=== PATIENT | female | born 1955 | race Caucasian/White ===

== ENCOUNTER 2018-03-19 03:02 | Emergency (ER) | payer BC ==
[2018-03-19] MEDS ORDERED: ALBUTEROL SULFATE 0.083% NEB 2.5 MG/3 ML AMPUL NEB ONE ×2 (03:09→04:38)
[2018-03-19] MEDS: MAGNESIUM SULFATE/D5W 1 GM/100 ML RTUPB IV SCH ×2 (03:20→03:56)
[2018-03-19 04:14] LABS: ABSOLUTE BASOPHILS # (AUTO) 0.1 10^3/uL (0.0-0.2); ABSOLUTE EOSINOPHILS # (AUTO) 0.1 10^3/uL (0.0-0.6); ABSOLUTE LYMPHOCYTES (AUTO) 3.2 10^3/uL (0.5-4.7); ABSOLUTE MONOCYTES (AUTO) 0.9 10^3/uL (0.1-1.4); ABSOLUTE NEUT (AUTO) 14.5 10^3/uL (1.7-8.2); BASOPHILS % (AUTO) 0.4 % (0-2); EOSINOPHILS % (AUTO) 0.3 % (0-6); HEMATOCRIT 40.7 % (36.0-47.0); HEMOGLOBIN 13.4 g/dL (12.0-15.5); LYMPHOCYTES % (AUTO) 16.9 % (13-45); MEAN CORPUSCULAR HEMOGLOBIN 31.3 pg (27.0-33.4); MEAN CORPUSCULAR HGB CONC 32.9 g/dL (32.0-36.0); MEAN CORPUSCULAR VOLUME 95 fl (80-97); MONOCYTES % (AUTO) 4.9 % (3-13); PLATELET COUNT 329 10^3/uL (150-450); RED BLOOD COUNT 4.28 10^6/uL (3.72-5.28); RED CELL DISTRIBUTION WIDTH 14.5 % (11.5-14.0); SEGMENTED NEUTROPHILS % (AUTO) 77.5 % (42-78); TOTAL CELLS COUNTED % (AUTO) 100 %; WHITE BLOOD COUNT 18.8 10^3/uL (4.0-10.5)
[2018-03-19 04:43] LABS: ALANINE AMINOTRANSFERASE 40 U/L (9-52); ALBUMIN 3.4 g/dL (3.5-5.0); ALKALINE PHOSPHATASE 103 U/L (38-126); ANION GAP 11 (5-19); ASPARTATE AMINO TRANSFERASE 23 U/L (14-36); BILIRUBIN,DIRECT 0.3 mg/dL (0.0-0.4); BILIRUBIN,TOTAL 0.3 mg/dL (0.2-1.3); BLOOD UREA NITROGEN 22 mg/dL (7-20); CALCIUM 8.3 mg/dL (8.4-10.2); CARBON DIOXIDE 25 mmol/L (22-30); CHLORIDE 86 mmol/L (98-107); SODIUM 122.3 mmol/L (137-145); TOTAL PROTEIN 5.7 g/dL (6.3-8.2)
--- NOTE | 2018-03-19 05:04 | RADIOLOGY REPORT (SQ) ---
Chest single view on 03/19/2018 at 5:12 AM CLINICAL INDICATION: Shortness of breath COMPARISON: None FINDINGS: The lungs are clear. Mild vascular calcification is noted in the aorta. Cardiac, hilar and mediastinal contours are within normal limits. Pulmonary vascularity is within normal limits. No bony abnormality is noted. IMPRESSION: No active disease.
[2018-03-19 05:06] LABS: GLUCOSE 674 mg/dL (75-110); POTASSIUM 2.7 mmol/L (3.6-5.0)
--- NOTE | 2018-03-19 05:45 | ER Document Report ---
Doctor's Note Notes: 03/19/18 05:42 I personally and independently obtained patient history and examined the patient and have reviewed the APC's note, reviewed, discussed and agree with their assessment and plan. HISTORY OF PRESENT ILLNESS: Patient is a 62-year-old female that presents to the emergency department for chief complaint of lip swelling, rash, after being bit by fire ants. Patient was stepping out of her car, and try to help get fire ants off of her , and was bitten the hands and feet, and then had a severe allergic reaction, she received IM epinephrine 2 by EMS. ROS: Constitutional: Negative for fever. Cardiovascular: Negative for chest pain. Respiratory: Negative for shortness of breath. Gastrointestinal: Negative for vomiting or abdominal pain Musculoskeletal: Negative for arm, leg or back pain Skin: Positive for rash and lip swelling Neurological: Negative for weakness or numbness. Unless otherwise stated in this report the patient's positive and negative responses for review of systems for constitutional, eyes, ENT, cardiovascular, respiratory, gastrointestinal, neurological, genitourinary, musculoskeletal, and integumentary systems and related systems to the presenting problem are either as stated in the HPI or were not pertinent or were negative for the symptoms and/or complaints related to the presenting medical problem. PHYSICAL EXAMINATION: Vital signs reviewed, nursing noted reviewed. GENERAL: Well-appearing, well-nourished and in no acute distress. HEAD: Atraumatic, normocephalic. EYES: Eyes appear normal, conjunctiva are normal. ENT: nares patent, oropharynx clear without exudates. Moist mucous membranes. No angioedema on my exam, uvula midline, no uvular edema NECK: Normal range of motion, supple without lymphadenopathy LUNGS: Breath sounds clear to auscultation bilaterally and equal. No wheezes rales or rhonchi. HEART: Regular rate and rhythm without murmurs ABDOMEN: Soft, nontender, normoactive bowel sounds. No rebound, guarding, or rigidity. No masses appreciated. EXTREMITIES: Nontender, good range of motion, no pitting or edema. NEUROLOGICAL: No focal neurological deficits. Moves all extremities spontaneously Motor and sensory grossly intact on exam. PSYCH: Normal mood, normal affect. SKIN: Warm, Dry, normal turgor, areas of erythema on the hands and feet, improved per patient, after receiving treatment MEDICAL DECISION MAKING: Patient was treated with IM epinephrine 2 by EMS, given albuterol inhalers, on my examination the patient was much improved, was consulted regarding the patient's blood work, which demonstrated significant hyperglycemia, pseudohyponatremia, and hypokalemia, hyperglycemia I feel is likely a reactant from 2 doses of IM epinephrine, repeated finger glucose testing and it was in the 200s, as opposed to 600 on her blood work, the hypokalemia is probably from continuous albuterol treatment, however we will repeat all of these labs, to verify them, if resolved or improved and stable, patient can be discharged, to follow-up she is from [place], her primary care is out of town. CRITICAL CARE TIME: Critical care time 35 minutes exclusive from separate billable procedures for a patient, and anaphylaxis secondary to fire ant venom exposure, requiring complex medical decision making, and high potential for clinical deterioration. Time spent obtaining history from patient or surrogate, discussions with consultants, development of treatment plan with patient or surrogate, evaluation of patient's response to treatment, examination of patient, ordering and performing treatments and interventions, ordering and review of laboratory studies, re-evaluation of patient's condition, ordering and review of radiographic studies and review of old charts Please review detail APC documentation. *Note is created using voice recognition software and may contain spelling, syntax or grammatical errors.
[2018-03-19 06:23] LABS: ANION GAP 13 (5-19); BLOOD UREA NITROGEN 25 mg/dL (7-20); CALCIUM 9.6 mg/dL (8.4-10.2); CARBON DIOXIDE 27 mmol/L (22-30); CHLORIDE 100 mmol/L (98-107); GLUCOSE 238 mg/dL (75-110); SODIUM 140.4 mmol/L (137-145)
[2018-03-19 06:34] LABS: POTASSIUM 2.8 mmol/L (3.6-5.0)
[2018-03-19] MEDS ORDERED: POTASSIUM CHLORIDE 10 MEQ CAPSULE.ER PO ONE ×2 (06:44→06:49)
--- NOTE | 2018-03-19 06:49 | ER Document Report ---
ED General - General Chief Complaint: Allergic Reaction Stated Complaint: ALLERGIC REACTION Time Seen by Provider: 03/19/18 03:09 Mode of Arrival: Medic Information source: Patient Notes: Patient presents with chief complaint of acute allergic reaction after stepping into a bed of fire aunts. Patient was transported to the emergency department via EMS. She received Solu-Medrol 125 mg IV, epinephrine 0.3 mg IM 2, DuoNeb 1, Pepcid 20 mg IV and albuterol 2.5 mg inhalation 1. Patient is alert and oriented at the time of arrival. TRAVEL OUTSIDE OF THE [place] IN LAST 30 DAYS: No - Related Data Allergies/Adverse Reactions: codeine Allergy (Verified 03/19/18 03:34) fire ant Allergy (Verified 03/19/18 03:34) shellfish derived Allergy (Verified 03/19/18 03:34) Past Medical History - General Information source: Patient - Social History Smoking Status: Former Smoker Frequency of alcohol use: None Drug Abuse: None Family History: Reviewed & Not Pertinent Patient has suicidal ideation: No Patient has homicidal ideation: No - Past Medical History Cardiac Medical History: Reports: Hx Hypertension Pulmonary Medical History: Reports: Hx COPD Renal/ Medical History: Denies: Hx Peritoneal Dialysis GI Medical History: Reports: Hx Gastroesophageal Reflux Disease Musculoskeletal Medical History: Reports Hx Arthritis Past Surgical History: Reports: Hx Cholecystectomy, Hx Orthopedic Surgery - wrist surgery, Hx Tubal Ligation Review of Systems - Review of Systems Respiratory: See HPI Skin: See HPI -: Yes All other systems reviewed and negative Physical Exam - Vital signs Vitals: Pulse Ox 99 03/19/18 03:03 - Notes Notes: PHYSICAL EXAMINATION: GENERAL: Well-appearing, well-nourished and in no acute distress. HEAD: Atraumatic, normocephalic. EYES: Pupils equal round and reactive to light, extraocular movements intact, conjunctiva are normal. ENT: Nares patent, oropharynx clear without exudates. Moist mucous membranes. NECK: Normal range of motion, supple without lymphadenopathy LUNGS: Bilateral wheezing noted, diminished breath sounds. HEART: Regular rate and rhythm without murmurs ABDOMEN: Soft, nontender, nondistended abdomen. No guarding, no rebound. No masses appreciated. Female : deferred Musculoskeletal: Normal range of motion, no pitting or edema. No cyanosis. NEUROLOGICAL: Cranial nerves grossly intact. Normal speech, normal gait. Normal sensory, motor exams PSYCH: Normal mood, normal affect. SKIN: Warm, Dry, normal turgor, scattered rash with hives noted on patient's torso. Course - Re-evaluation Re-evalutation: Patient is much improved after administration of medications by EMS as well as albuterol treatments here in the emergency department. I discussed patient's labs with Dr. Garibay who agrees that patient's elevated glucose is most likely due to the Solu-Medrol that was given as she has not a diabetic. Hypokalemia likely secondary to albuterol treatments. Will redraw a chemistry. Repeat chemistry with improved glucose, potassium remains at 2.8. Patient is asymptomatic area patient will be given p.o. potassium replacement. Patient's vital signs are stable, patient continues to have complete resolution of her hives after several hours of monitoring. Lung sounds are clear to auscultation bilaterally with good air movement throughout. Patient will be discharged home with strict ED return precautions. - Vital Signs Vital signs: Temp Pulse Resp BP Pulse Ox 16 111/35 L 90 L 03/19/18 06:01 03/19/18 06:01 03/19/18 06:01 - Laboratory Result Diagrams: 03/19/18 04:00 03/19/18 05:40 Laboratory results interpreted by me: 03/19/18 03/19/18 03/19/18 04:00 04:00 05:30 WBC 18.8 H RDW 14.5 H Absolute Neutrophils 14.5 H Sodium 122.3 L Potassium 2.7 L* Chloride 86 L BUN 22 H Glucose 674 H* POC Glucose 232 H Calcium 8.3 L Total Protein 5.7 L Albumin 3.4 L 03/19/18 05:40 WBC RDW Absolute Neutrophils Sodium Potassium 2.8 L* Chloride BUN 25 H Glucose 238 H POC Glucose Calcium Total Protein Albumin Discharge - Discharge Clinical Impression: Acute allergic reaction Qualifiers: Encounter type: initial encounter Qualified Code(s): T78.40XA - Allergy, unspecified, initial encounter Condition: Stable Disposition: HOME, SELF-CARE Additional Instructions: Acute Allergic Reaction Your symptoms are due to an allergic reaction. Allergy can cause hives, swelling of the hands, feet, and face, hoarseness, and difficulty swallowing or breathing. It may be due to exposure to medication, animal dander, foods, infection, or insect bites. Medication is a common cause, even when prior use of this same medication caused no problems. Acute treatment may include adrenalin and antihistamines. Usually, the specific allergic agent can't be identified unless repeated episodes occur. Home treatment includes the following: (1) Stop any suspicious medications. This will be discussed with you. (2) Oral antihistamines for the next four to five days. Example, diphenhydramine (Benadryl) every four hours. (3) You may also use cimetidine (Tagamet), ranitidine (Zantac), or famotidine (Pepcid) every four hours if diphenhydramine is not controlling itching and hives. (4) Avoid aspirin until the hives completely disappear. (5) Avoid hot bahs or showers until the hives are completely gone. Call the doctor if faintness, difficulty swallowing, tightness in the chest, or wheezing occurs. Please carry the EpiPen with you at all times. Should you need to use the EpiPen please either call 911 or present to the emergency department. Over the next several days please increase your potassium by eating potassium rich foods such as bananas and orange juice. Please return to the emergency department for any additional concerns. Prescriptions: Epinephrine [Epipen 2-Nelson] 0.3 mg IM ONCE PRN #1 packet PRN Reason:
[2018-03-19 06:55] VITALS: BP 111/35
--- NOTE | 2018-03-19 09:28 | EKG REPORT ---
SEVERITY:- ABNORMAL ECG - SINUS RHYTHM VENTRICULAR PREMATURE COMPLEX NONSPECIFIC T ABNORMALITIES, LATERAL LEADS : Confirmed by: Elise Milian 19-Mar-2018 09:27:42
== END 2018-03-19 07:08 | disposition home or self-care (01) ==
LOC: ER 03:02
DX: T63.421A Toxic effect of venom of ants, accidental (unintentional), initial encounter (principal); L50.9 Urticaria, unspecified; I10 Essential (primary) hypertension; J44.9 Chronic obstructive pulmonary disease, unspecified; Z88.5 Allergy status to narcotic agent; Z91.013 Allergy to seafood; Z87.891 Personal history of nicotine dependence
CPT/HCPCS: 93005; 94640 ×2; 99283; 96365; 36415; 82962; 85025; 80048; 80053; 71045; 93010; J3475